=== PATIENT | male | born 1955 | race Caucasian/White ===

== ENCOUNTER 2017-01-16 15:26 | Emergency (ER) | payer OTHER, BC ==
[2017-01-16] MEDS ORDERED: Lidocaine 1% 30 ML SDV ONE ×2 (15:48→15:54)
[2017-01-16] MEDS ORDERED: Bacitracin Oint 1 GM U/D Packet ONE ×2 (15:48→15:55)
--- NOTE | 2017-01-16 16:11 | EDM.PDOC ---
ED HPI Skin/Rash - General Chief Complaint: Laceration Stated Complaint: CUT ON HEAD WC Time Seen by Provider: 01/16/17 15:50 Source: Reports: Patient History Limitations: Reports: No limitations - History of Present Illness INITIAL COMMENTS - FREE TEXT/NARRATIVE: This 61 yo male patient reports to the ED with a laceration to his head and right medial thumb. The patient reports a heating unit dropped from it's tristan and hit him in the head. When he attempted to catch the unit, the patient also cut his right hand. Symptom Onset Date: 01/16/17 Timing: Reports: still present Location, Skin: Reports: head, upper extremity, right Severity: moderate Known Identified Source: yes Place of Occurrence: home Associated Symptoms: Reports: no other symptoms Similar Symptoms Previously: no Recent Medical Care: no - Related Data Allergies Allergy/AdvReac Type Severity Reaction Status Date / Time No Known Allergies Allergy Verified 06/18/16 18:47 Home Meds: Ambulatory Orders Medication Instructions Recorded Confirmed Hydrochlorothiazide 50 mg PO DAILY 06/18/16 01/16/17 [Hydrochlorothiazide] Past Medical History HEENT History: Reports: Impaired vision Cardiovascular History: Reports: Hypertension - Past Surgical History GI Surgical History: Reports: Other (see below) Other GI Surgeries/Procedures: vasectomy Social & Family History - Tobacco Use Smoking Status *Q: Never Smoker Second Hand Smoke Exposure: No - Recreational Drug Use Recreational Drug Use: No ED ROS GENERAL - Review of Systems Review Of Systems: ROS reveals no pertinent complaints other than HPI. ED EXAM, SKIN/RASH Exam: See Below Exam Limited By: No limitations General Appearance: alert, WD/WN, no apparent distress Eye Exam: bilateral eye: EOMI, normal inspection, PERRL Ears: normal external exam, normal canal, hearing grossly normal, normal TMs Nose: normal inspection, normal mucosa, no blood Throat/Mouth: Normal inspection, Normal lips, Normal teeth, Normal gums, Normal oropharynx, Normal voice, No airway compromise Head: atraumatic, normocephalic Neck: normal inspection, supple, non-tender, full range of motion Respiratory/Chest: no respiratory distress, lungs clear, normal breath sounds, no accessory muscle use, chest non-tender Cardiovascular: normal peripheral pulses, regular rate, rhythm, no edema, no gallop, no JVD, no murmur, no rub GI/Abdominal: normal bowel sounds, soft, non tender, no organomegaly, no distention, no abnormal bruit, no mass (Male) Exam: Deferred Rectal (Males) Exam: Deferred Back Exam: normal inspection, full range of motion, NT Extremities: normal inspection, normal range of motion, non-tender, no pedal edema, normal capillary refill Neurological: alert, oriented, CN II-XII intact, normal cognition, normal gait, normal reflexes, no motor/sensory deficits Psychiatric: normal affect, normal mood Skin: Warm, Dry, Normal color, No rash Location, Skin: head Characteristics: linear Associated features: warmth, tenderness, swelling Lymphatic: no adenopathy ED SKIN PROCEDURES - Laceration/Wound Repair Left Lateral Head Lac/wound length in cm: 2.0 Appearance: subcutaneous Distal NVT: neuro & vascular intact Exploration/Debridement/Repair: wound explored, in a bloodless field, explored to base Closed with: tom # of sutures: 4 Sterile dressing applied: nurse Tetanus status addressed: Yes Complications: No Right Distal Finger Lac/wound length in cm: 1.0 Appearance: subcutaneous Distal NVT: neuro & vascular intact Anesthetic type: local Local anesthesia - Lidocaine (Xylocaine): 1% plain Local anesthetic volume: 2cc Skin prep: chlorhexidine (hibiciens) Exploration/Debridement/Repair: wound explored, in a bloodless field, explored to base Closed with: sutures Suture size: 4-0 # of sutures: 3 Suture type: prolene, interrupted, simple Sterile dressing applied: nurse Tetanus status addressed: Yes Complications: No Course - Orders/Labs/Meds Meds: Medications Discontinued Medications Generic Name Dose Route Start Last Admin Trade Name Celso PRN Reason Stop Dose Admin Bacitracin 1 dose 01/16/17 15:48 Bacitracin Oint 1 Gm .ROUTE 01/16/17 15:49 .STK-MED ONE Bacitracin Confirm 01/16/17 15:55 Bacitracin Oint 1 Gm Administered 01/16/17 15:56 Dose 1 dose .ROUTE .STK-MED ONE Lidocaine HCl 30 ml 01/16/17 15:48 Xylocaine-Mpf 1% .ROUTE 01/16/17 15:49 .STK-MED ONE Lidocaine HCl Confirm 01/16/17 15:54 Xylocaine-Mpf 1% Administered 01/16/17 15:55 Dose 30 ml .ROUTE .STK-MED ONE Departure - Departure Time of Disposition: 16:18 Disposition: Home, Self-Care 01 Condition: fair Clinical Impression: Scalp laceration Qualifiers: Encounter type: initial encounter Qualified Code(s): S01.01XA - Laceration without foreign body of scalp, initial encounter Laceration of right thumb Qualifiers: Encounter type: initial encounter Qualified Code(s): S61.011A - Laceration without foreign body of right thumb without damage to nail, initial encounter Instructions: Laceration Care, Adult, [id number] Forms: ED Department Discharge Care Plan Goals: The patient was advised of the examination results during the visit. The laceration margins were well approximated during the visit. The patient should have the sutures and tom removed in 7-10 days. If the patient has any additional symptoms or concerns, the patient should follow-up with his primary care facility or return to the emergency department.
[2017-01-16 16:20] VITALS: BP 158/90
== END 2017-01-16 16:30 | disposition home or self-care (01) ==
LOC: DL.ED 15:26
DX: S01.01XA Laceration without foreign body of scalp, initial encounter (principal); S61.011A Laceration without foreign body of right thumb without damage to nail, initial encounter; I10 Essential (primary) hypertension; W22.8XXA Striking against or struck by other objects, initial encounter
CPT/HCPCS: 12002; 12011; 99283

== ENCOUNTER 2017-05-16 07:23 | Day surgery (SDC) | payer OTHER, BC ==
[~2017-05-16 07:23] MED LIST: Dextrose 5%-0.45% NaCl 1,000 ML IV SCH; Midazolam 1 MG/ML 2 ML SDV ONE; Sodium Chloride 0.9% 10 ML Syringe FLUSH PRN; fentaNYL 100 MCG/2 ML SDV ONE
[2017-05-16] MEDS ORDERED: fentaNYL 100 MCG/2 ML SDV IV ONE ×3 (08:37→16:31)
[2017-05-16] MEDS ORDERED: Midazolam 1 MG/ML 2 ML SDV IV ONE ×7 (08:38→16:31)
[2017-05-16 10:49] VITALS: BP 132/75
--- NOTE | 2017-05-16 13:00 | OR ---
DATE: 05/16/2017 PROCEDURE: Total colonoscopy. INSTRUMENT USED: CF-H180AL Olympus video colonoscope. The Olympus distal detachment device. PREMEDICATIONS: Fentanyl 100 mcg intravenous, Versed 4 mg intravenous. Nasal O2 cannula. The procedure was done under pulse oximetry, BP recording, and emt/paramedic. INDICATION: Screening colonoscopic examination is done for detection of any polypoid lesions and removal, endoscopic hemostasis therapy if needed. DESCRIPTION OF PROCEDURE: Initial rectal exam was unremarkable. Rigid anoscopy was normal. The colonoscope was passed with ease up to the ileocecal area, photographs were taken of the normal-appearing cecum, identified by double- bulged ileocecal folds. No bleeding was noted from any of the visualized areas at the commencement of the examination. No stricture. No vascular ectasia. No large isolated ulcerations seen. No evidence of diffuse inflammatory bowel disease in the form of friability, contact bleeding, or ulcerations. No polyp or tumor mass identified. Probing the proximal sides of folds and flexures, using adequate distention and clearing of the stool material, withdrawal of the scope was made, cecum to rectum time was 6 minutes. No bleeding was noted from any of the visualized areas at the completion of examination. IMPRESSION: Normal study. The patient tolerated the procedure well. [facility] /[id number]
--- NOTE | 2017-05-16 14:32 | LETTER ---
05/16/2017 Abhijeet Moreira MD [address] [address] RE: CEM OSBORN : [address] Moreira: Mr. Cem Osborn had colonoscopic examination done this morning and he tolerated the procedure well. I herewith send a copy of the endoscopy note and photographs for your review. Thank you. Sincerely, [facility] /[id number]
== END 2017-05-16 10:59 | disposition home or self-care (01) ==
LOC: DL.ENDO 07:23
PROVIDERS: ATTEND Internal Medicine Gastroenterology
DX: Z12.11 Encounter for screening for malignant neoplasm of colon (principal); I10 Essential (primary) hypertension; Z98.52 Vasectomy status
CPT/HCPCS: 45378; J2250; J3010; J7042